=== PATIENT | female | born 2000 | race Caucasian/White ===

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

== ENCOUNTER 2021-06-23 12:34 | Outpatient (REF) | payer MEDICAID, SELFPAY ==
[2021-06-24 15:04] LABS: HSV 1 DNA Result Negative (Negative); HSV 2 DNA Result Negative (Negative)
== END 2021-06-23 12:35 | disposition home or self-care (01) ==
LOC: LBN 12:34
PROVIDERS: Visit Provider Family Medicine
DX: B00.1 Herpesviral vesicular dermatitis (principal)
CPT/HCPCS: 87529

== ENCOUNTER 2022-06-09 15:39 | Outpatient (REF) | payer MEDICAID, SELFPAY ==
--- NOTE | 2022-06-09 13:00 | PAPFT_PTH ---
PATIENT: Sherrill Burns LOC: [facility] U#:[id number] AGE/SX: 22/F ROOM: RE06/09/[address]: Destiny Copeland NP : 2000 BED: DIS: 06/09/2022 SPEC #: [id number] RECD: 06/09/22 18:00 STATUS: [facility]OPEZ REQ #: [id number] KAREEM: 06/09/22 13:[address]: Destiny Copeland NP DEPT: [facility] Cytology RECD BY: Shoshana Hill ENTERED: 06/10/22 10:32 SP TYPE: PAPFT OTHR DR: Ron Lo DNP Tissues: 1 - CX/ENDOCX FOR PAP SMEARS Procedures: PAP THIN PREP/UVM Screening Comments: [id number]
== END 2022-06-09 15:40 | disposition home or self-care (01) ==
LOC: LBN 15:39
PROVIDERS: PCP Nurse Practitioner Family; Visit Provider Nurse Practitioner Women's Health
DX: Z12.4 Encounter for screening for malignant neoplasm of cervix (principal)
CPT/HCPCS: 88142

== ENCOUNTER 2022-10-16 09:03 | Emergency (ER) | payer MEDICAID, SELFPAY ==
[2022-10-16 09:12] VITALS: BP 109/74; PULSE 90; RESP 16; TEMP 36.6; O2SAT 98
--- NOTE | 2022-10-16 10:00 | DI.RAD_ITS ---
Exam(s) XR ANKLE RT COMPLETE EXAM: XR ANKLE RT COMPLETE CLINICAL HISTORY: fall lateral ankle pain. TECHNIQUE: 2D digital imaging was performed. COMPARISON: No exams were available for comparison FINDINGS: There is soft tissue swelling laterally. No fractures nor widening of the ankle mortise. Talar dome unremarkable. No degenerative changes. On the lateral view there is a suggestion of osseous tarsal coalition between the calcaneus and cuboi d bones. There is no osseous tarsal coalition evident between the talus and calcaneus. IMPRESSION: Lateral soft tissue swelling. No fractures. 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 DATA REPOSITORY: RADIATION DOSE DELIVERED:
--- NOTE | 2022-10-16 10:19 | DI.VRAD_ITS ---
PROCEDURE INFORMATION: Exam: XR Right Ankle Exam date and time: 10/16/2022 10:05 AM Age: 22 years old Clinical indication: Pain; Ankle; Right TECHNIQUE: Imaging protocol: Radiologic exam of the right ankle. Views: 3 or more views. COMPARISON: No relevant prior studies available. FINDINGS: Bones/joints: There is no evidence of acute fracture.There is no evidence of malalignment or dislocation. Soft tissues: Bimalleolar soft tissue swelling IMPRESSION: There is no evidence of acute fracture.There is no evidence of malalignment or dislocation. Dictated and Authenticated by: Magdalena Sinclair MD. Ordering:THA Gaspar MD
--- NOTE | 2022-10-16 10:26 | W.ED.GENAD ---
Discharge Plan Disposition Patient Disposition: Home Discharge Details Clinical Impression: Right ankle sprain Primary Care Provider: Ron Manjarrez ED Provider: Hubert Canada Home Meds and New Rx's Prescriptions: No Action No Known Home Meds Discharge Instructions Instructions: Ankle Sprain (ED), R.I.C.E. Treatment (ED) Additional Instructions: You may continue to use [id number] pain medication as needed for discomfort. Please also use crutches for the next 2 to 3 days and then advance activity including weightbearing as tolerated. If not improving in the next 2 to 4 weeks please follow-up with your primary care provider for reassessment or return to the emergency department for any new or significant worsening of your symptoms. Referrals: Ron Manjarrez INCIDENT RESPONSE CONSULTANT [Primary Care Provider] - Discharge Data Discharge Date/Time-TO BE ENTERED AT DEPARTURE: 10/16/22 10:50 Medical Decision Making Patient presenting to the emergency department for chief complaint of right ankle injury. Patient states that yesterday she stepped off a curb and rolled her ankle. Patient denies any other injury or trauma. Patient does report that she has injured her right ankle before and initially she was able to walk on it but now it is becoming more painful. Patient is using crutches and toe-touch weightbearing only. Physical exam shows significant swelling to the lateral malleolus and tenderness both to the medial and lateral malleolus. Range of motion is limited by pain but sensation and movement along with cap refill is intact distal to injury no other abnormalities noted on exam we will perform radiological imaging. Patient denies any need for pain medication pending results. Review of radiological imaging and radiologist interpretation shows no acute fracture or dislocation. We will place patient in a stirrup ankle brace and encourage crutch use over the next couple days with weightbearing as tolerated. Patient to follow-up with primary care provider if not improving in the next 2 to 4 weeks. After discussion of diagnosis and plan of care patient has no further needs, questions, or concerns and states clear understanding to return to the emergency department for any worsening symptoms. This documentation was generated using [employer] system, please disregard any oddities of phrase or misspellings. Imaging Data Radiologic Study: Attestation: I personally reviewed and interpreted this imaging study as follows: Imaging: X-Ray Radiologist's impression: Exam(s) PROCEDURE INFORMATION: Exam: XR Right Ankle Exam date and time: 10/16/2022 10:05 AM Age: 22 years old Clinical indication: Pain; Ankle; Right TECHNIQUE: Imaging protocol: Radiologic exam of the right ankle. Views: 3 or more views. COMPARISON: No relevant prior studies available. FINDINGS: Bones/joints: There is no evidence of acute fracture.There is no evidence of malalignment or dislocation. Soft tissues: Bimalleolar soft tissue swelling IMPRESSION: There is no evidence of acute fracture.There is no evidence of malalignment or dislocation. HPI General Mode of arrival: ambulatory. Date/Time Provider Initiated Documentation: 10/16/22 09:28. Limitations to Documentation: no limitations. Information obtained by: patient and RN notes reviewed. History of Present Illness 22 year old F presents to the emergency department with the chief complaint of Right ankle injury, described as moderate, Quality is described as aching, and is localized to the right and lower extremity. Patient reports no radiation. Patient started experiencing this day(s) (1) and it has been constant. Immobilization improves symptom(s), Movement worsens symptoms . Patient notes no other symptoms.. Patient did receive the following treatments prior to arrival, none Related Data Home Medications Medication Instructions Recorded Confirmed Unknown [No Known Home Meds] 06/09/22 06/09/22 Allergies Allergy/AdvReac Type Severity Reaction Status Date / Time ibuprofen Allergy Swelling/Ed Verified 06/09/22 12:37 [From DayQuil Sinus talia Pressure/Pain] pseudoephedrine Allergy Swelling/Ed Verified 06/09/22 12:37 [From DayQuil Sinus talia Pressure/Pain] General Stated Complaint: Orthopedic GLADIS: 4 Review of Systems Narrative: 6 systems reviewed and unremarkable except what is marked below. Musculoskeletal Musculoskeletal: Reports as per HPI, Reports arthralgias, Reports joint swelling, Reports limited range of motion, Denies numbness and Denies tingling Integumentary/Breasts Skin/Breast: Reports unusual bruising and Denies wounds Neurologic Neurologic: Denies numbness and Denies tingling PFSH All Active Problems (Updated 10/16/22 @ 10:32 by Hubert Canada NP) Right ankle sprain (Acute) Cold sore (Acute) Concentration deficit (Acute) 09/29/20 - Scores low for hyperactivity, moderate for inattention/focus issues. Increased body mass index (BMI) (Acute) Anxiety and depression (Chronic) Poor dentition (Acute) Referred to [place] Prominence of eyes (Acute 02/02/17) R eye is more prominent than L eye. No lid lag, no abnormal occular movement. Medical History Abscess of forearm MRSA Smoker in home mom, aunt Viral warts multiple including genital area Family History Mother ITP (idiopathic thrombocytopenic purpura) Cervical cancer Depression Maternal Grandmother Mental disorder bipolar Cervical cancer Sister No problems noted. Sister No problems noted. Sister Alcohol abuse Brother Alcohol abuse Father Alcohol abuse Brother No problems noted. Brother ADHD Bipolar 1 disorder Maternal Grandfather No problems noted. Paternal Grandfather Heart disease Paternal Grandmother No problems noted. 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 Pets and animals: Yes Pets and animals: cat(s) Sexually active: Yes Do you think of yourself as: straight/heterosexual Current gender identity: female What is your relationship status?: living with partner How often do you talk on the phone with friends or family?: three or more times per week How often do you get together with friends or relatives?: twice per week How often do you attend episcopalian or samaritan services?: decline to answer Do you belong to any clubs or organized social groups?: no Panel score (0-1 are the most socially isolated patients): 2 What type of physical activity do you participate in: none Frequency: does not exercise Vera/Sikhism: None Special vera needs: No Seatbelt use: always Helmet use: Yes Helmet use: sometimes Drive intox or ride w/intox regional driver: No Working smoke detector in home: Yes Fire extinguisher in home: Yes Carbon monox detector in home: Yes Firearms in home: No Do you feel safe at home: Yes Do you feel safe in your relationship?: Yes Female Reproductive History Menstrual control method: progestin IUCD History History 0 Para Hx # Term Pregnancies Multiple births Hx # Pregnancies Ectopic pregnancies AB induced Hx Number of Living Children AB spontaneous Exam Const General: cooperative, no acute distress and not ill appearing Orientation: alert, awake and oriented x3 HENMT Mouth: moist mucous membranes Resp Effort & Inspection: normal respiratory effort, able to speak in complete sentences and no respiratory distress Cardio Rate: regular rate Rhythm: regular rhythm Skin General skin exam: no rashes or lesions noted Neuro General: patient alert, patient awake, patient oriented x3, moves all extremities and no focal motor deficits Sensory Exam: no sensory deficits noted Extrem General: normal exam except as noted Right lower extremity: ankle Details: tenderness Location: of the lateral malleolus and of the medial malleolus, swelling Details: laterally, abnormal ROM Details: pain with active ROM and pain with passive ROM and ecchymosis lateral Details: single; no abrasions and no crepitus Course Vital Signs Vital signs: Vital Signs Temperature 36.6 C 10/16/22 09:12 Pulse 90 10/16/22 09:12 Respiratory Rate 16 10/16/22 09:12 Blood Pressure 109/74 10/16/22 09:12 Pulse Oximetry 98 10/16/22 09:12 Temperature 36.6 C 10/16/22 09:12 Temperature Source Oral 10/16/22 09:12 Pulse 90 10/16/22 09:12 Respiratory Rate 16 10/16/22 09:12 Respiratory Effort Normal 10/16/22 09:32 Blood Pressure 109/74 10/16/22 09:12 Blood Pressure Position Sitting 10/16/22 09:12 Pulse Oximetry 98 10/16/22 09:12 Oxygen Delivery Method Room Air 10/16/22 09:12 Oxygen Flow Rate 0 10/16/22 09:12 Lab/Test Results Lab/Test Results: POC- Test(urine) Negative PAWSS Have you Been Recently Intoxicated or Drunk Within the Last 30 days?: No Have you Ever Experienced Previous Episodes of Alcohol Withdrawal?: No Have you ever Experienced Withdrawal Seizures?: No Have you ever Experienced Delirium Tremens(DT)s?: No Have you ever undergone Alcohol Rehabilitation Treatment (i.e, inpt ot outpatient treatment programs)?: No Have you ever Experienced Blackouts?: No Have you ever Combined Alcohol with other Downers within the last 90 days?: No Have you ever Combined Alcohol with any other Substance of Abuse during the last 90 days?: No Result: 0
== END 2022-10-16 10:50 | disposition home or self-care (01) ==
PROVIDERS: Emergency Provider Nurse Practitioner Family; PCP Nurse Practitioner Family
DX: S93.401A Sprain of unspecified ligament of right ankle, initial encounter (principal); X50.1XXA Overexertion from prolonged static or awkward postures, initial encounter; Y93.01 Activity, walking, marching and hiking; Y92.480 Sidewalk as the place of occurrence of the external cause; Y99.9 Unspecified external cause status
CPT/HCPCS: 81025; 99283; 73610

== ENCOUNTER 2023-02-26 15:53 | Outpatient (REF) | payer MEDICAID, SELFPAY ==
[2023-02-26 16:01] LABS: HCT 41.7 % (36.0-46.0); HGB 13.9 g/dL (11.2-15.7); MCH 29.6 pg (27.0-33.0); MCHC 33.3 % (32.0-36.0); MCV 89 fL (80-95); MPV 11.5 fL (8.0-11.0); Platelet Count 126 10^3/uL (130-400); RDW 12.8 % (11.7-14.6); WBC 7.21 10^3/uL (4.4-10.8)
[2023-02-26 16:21] LABS: Anion Gap 9.7 mmol/L (3-11); BUN 10 mg/dL (7-18); CO2 26.3 mmol/L (21.0-32.0); CREATININE 0.9 mg/dL (0.55-1.02); Calcium 9.5 mg/dL (8.5-10.1); Chloride 104 mmol/L (98-107); Estimated GFR 91.55 (mL/min/1.73m2); Glucose 77 mg/dL (74-106); Potassium 3.8 mmol/L (3.5-5.1); Sodium 140 mmol/L (136-145)
== END 2023-02-26 15:54 | disposition home or self-care (01) ==
LOC: LBN 15:53
PROVIDERS: PCP Nurse Practitioner Family; Visit Provider Nurse Practitioner Family
DX: F41.8 Other specified anxiety disorders (principal); F32.89 Other specified depressive episodes; F43.20 Adjustment disorder, unspecified; Z79.899 Other long term (current) drug therapy
CPT/HCPCS: 80048; 85027; 84443

== ENCOUNTER 2023-05-01 19:53 | Emergency (ER) | payer MEDICAID, SELFPAY ==
[2023-05-01 19:58] VITALS: BP 126/78; PULSE 89; RESP 16; TEMP 36.8; O2SAT 97
--- NOTE | 2023-05-01 20:00 | DI.RAD_ITS ---
Exam(s) XR ANKLE RT COMPLETE EXAM: XR ANKLE RT COMPLETE CLINICAL HISTORY: lateral ankle injury. TECHNIQUE: 2D digital imaging was performed. Three views. COMPARISON: CR,XR XR ANKLE RT COMPLETE from 10/16/2022 FINDINGS: BONES: Nondisplaced oblique fracture through the lateral malleolus, extending to the ankle mortise. No bony destructive lesion is seen. JOINTS: The ankle mortise is normally aligned. Tibiotalar joint space is maintained. SOFT TISSUE: Soft tissue swelling. IMPRESSION: Nondisplaced fracture of the distal fibula. Findings called to Beth Stubbs of the emergency department. DATA REPOSITORY: RADIATION DOSE DELIVERED:
--- NOTE | 2023-05-01 21:01 | DI.VRAD_ITS ---
PROCEDURE INFORMATION: Exam: XR Right Ankle Exam date and time: 05/01/2023 8:19 PM Age: 23 years old Clinical indication: Pain; Right; Patient HX: Lateral ankle injury TECHNIQUE: Imaging protocol: Radiologic exam of the right ankle. Views: 3 or more views. COMPARISON: CR XR ANKLE RT COMPLETE 10/16/2022 10:05 AM FINDINGS: Bones/joints: Three views of the right ankle reveal no acute fracture or dislocation. The ankle mortise appears intact. Soft tissues: There is prominent soft tissue swelling over the lateral malleolus. IMPRESSION: No acute fracture or dislocation seen at the right ankle. Prominent soft tissue swelling overlying the lateral malleolus. Dictated and Authenticated by: Marc Pardo MD. Ordering:THA Gaspar MD
--- NOTE | 2023-05-01 21:10 | ED.GENADUL_ITS ---
HPI General Mode of arrival: wheelchair . Date/Time Provider Initiated Documentation: 05/01/23 20:00 . Limitations to Documentation: no limitations . Information obtained by: patient and RN notes reviewed . History of Present Illness 23 year old F presents to the emergency department with the chief complaint of Right ankle injury, described as moderate, severe and similar to prior episodes, and is localized to the right and lower extremity. Patient started experiencing this hour(s) (4) and it has been constant. Immobilization improves symptom(s), Movement worsens symptoms . Patient notes no other symptoms.. Patient did receive the following treatments prior to arrival, none Related Data Home Medications Medication Instructions Recorded Confirmed escitalopram oxalate 20 mg tablet 20 mg PO DAILY #90 tabs 02/26/23 04/09/23 Previous Rx's Medication Instructions Recorded escitalopram oxalate 20 mg tablet 20 mg PO DAILY #90 tabs 02/26/23 Allergies Allergy/AdvReac Type Severity Reaction Status Date / Time ibuprofen Allergy Swelling/Ed Verified 03/12/23 11:54 [From DayQuil Sinus talia Pressure/Pain] pseudoephedrine Allergy Swelling/Ed Verified 03/12/23 11:54 [From DayQuil Sinus talia Pressure/Pain] General Stated Complaint: Orthopedic GLADIS: 4 Review of Systems Cardiovascular Cardiovascular: Denies syncope Musculoskeletal Musculoskeletal: Reports as per HPI, Reports arthralgias, Reports joint swelling and Reports limited range of motion Integumentary/Breasts Skin/Breast: Denies unusual bruising and Denies wounds Neurologic Neurologic: Denies syncope and Denies paresthesias Exam Const General: cooperative, no acute distress and not ill appearing Orientation: alert, awake and oriented x3 HENNM Mouth: moist mucous membranes Resp Effort & Inspection: normal respiratory effort, able to speak in complete sentences and no respiratory distress Cardio Rate: regular rate Rhythm: regular rhythm Pulses: normal peripheral pulses Skin General skin exam: no rashes or lesions noted Neuro General: patient alert, patient awake, patient oriented x3, moves all extremities and no focal motor deficits Sensory Exam: no sensory deficits noted Extrem General: normal exam except as noted Right lower extremity: ankle Details: tenderness Location: of the lateral malleolus, swelling Details: laterally and abnormal ROM Details: pain with active ROM Details: with plantar flexion and with dorsiflexion, pain with passive ROM Details: with plantar flexion and with dorsiflexion and with range as follows (No inversion or eversion due to significant pain) Course Vital Signs Vital signs: Vital Signs Temperature 36.8 C 05/01/23 19:58 Pulse 89 05/01/23 19:58 Respiratory Rate 16 05/01/23 19:58 Blood Pressure 126/78 05/01/23 19:58 Pulse Oximetry 97 05/01/23 19:58 Temperature 36.8 C 05/01/23 19:58 Pulse 89 05/01/23 19:58 Respiratory Rate 16 05/01/23 19:58 Respiratory Effort Normal 05/01/23 20:08 Blood Pressure 126/78 05/01/23 19:58 Pulse Oximetry 97 05/01/23 19:58 Oxygen Delivery Method Room Air 05/01/23 19:58 Oxygen Flow Rate 0 05/01/23 19:58 Medical Decision Making Patient presenting to the emergency department for chief complaint of right ankle injury. Patient states approximately 4 hours ago she was on a swing and got her foot caught behind her and she heard a large pop or snap to the lateral aspect of her ankle. After that she was unable to bear any weight or put press ure on her ankle or foot. Patient denies any other injury or trauma. She does state history of multiple ankle sprains on the right within the last 6 months. No other contributing past medical history. Physical exam shows significant lateral ankle swelling and tenderness to palpation and inability to perform any inversion or eversion range of motion secondary to pain. There is still flexion and extension of the ankle but somewhat reduced secondary to injury. Pulse sensation and movement is intact distal to the injury. Will perform radiological imaging for evaluation of sprain versus fracture Review of radiological imaging and radiologist interpretation shows a subtle lunacy that is seen on the lateral view. Radiologist interpreted film as negative but I question if there is possibly a subtle nondisplaced fracture given patient not being weightbearing and tender to that area. Will place patient in walking boot and crutches which she already has at home and on the orthopedic list for follow-up and reassessment for ankle injury due to question of fracture versus sprain. After discussion of diagnosis and plan of care patient has no further needs, questions, or concerns and states clear understanding to return to the emergency department for any worsening symptoms. This documentation was generated using [employer]ation system, please disregard any oddities of phrase or misspellings. Imaging Data Radiologic Study: My impression: Question of subtle fracture due to lunacy seen on lateral view Radiologist's impression: Exam(s) PROCEDURE INFORMATION: Exam: XR Right Ankle Exam date and time: 05/01/2023 8:19 PM Age: 23 years old Clinical indication: Pain; Right; Patient HX: Lateral ankle injury TECHNIQUE: Imaging protocol: Radiologic exam of the right ankle. Views: 3 or more views. COMPARISON: CR XR ANKLE RT COMPLETE 10/16/2022 10:05 AM FINDINGS: Bones/joints: Three views of the right ankle reveal no acute fracture or dislocation. The ankle mortise appears intact. Soft tissues: There is prominent soft tissue swelling over the lateral malleolus. IMPRESSION: No acute fracture or dislocation seen at the right ankle. Prominent soft tissue swelling overlying the lateral malleolus. Dictated and Authenticated by: Marc Pardo MD. Quality:SDOH Health Related Social Needs: Health related social needs inadequate housing, food i nsecurity, material hardship Health related social needs details r/t impulsivity, PFSH All Active Problems Injury of right ankle (Acute) Cold sore (Acute) Concentration deficit (Acute) 09/29/20 - Scores low for hyperactivity, moderate for inattention/focus issues. Increased body mass index (BMI) (Acute) Anxiety and depression (Chronic) Poor dentition (Acute) Referred to [place] Prominence of eyes (Acute 02/02/17) R eye is more prominent than L eye. No lid lag, no abnormal occular movement. Medical History Viral warts multiple including genital area Smoker in home mom, aunt Abscess of forearm MRSA Family History Mother ITP (idiopathic thrombocytopenic purpura) Cervical cancer Depression Maternal Grandmother Mental disorder bipolar Cervical cancer Sister No problems noted. Sister No problems noted. Sister Alcohol abuse Brother Alcohol abuse Father Alcohol abuse Brother No problems noted. Brother ADHD Bipolar 1 disorder Maternal Grandfather No problems noted. Paternal Grandfather Heart disease Paternal Grandmother No problems noted. 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 Pets and animals: Yes Pets and animals: cat(s) Sexually active: Yes Do you think of yourself as: straight/heterosexual Current gender identity: female What is your relationship status?: living with partner How often do you talk on the phone with friends or family?: three or more times per week How often do you get together with friends or relatives?: twice per week How often do you attend orthodoxy or synagogue services?: decline to answer Do you belong to any clubs or organized social groups?: no Panel score (0-1 are the most socially isolated patients): 2 What type of physical activity do you participate in: none Frequency: does not exercise Vera/Anabaptism: None Special vera needs: No Seatbelt use: always Helmet use: Yes Helmet use: sometimes Drive intox or ride w/intox local truck driver: No Working smoke detector in home: Yes Fire extinguisher in home: Yes Carbon monox detector in home: Yes Firearms in home: No Do you feel safe at home: Yes Do you feel safe in your relationship?: Yes Female Reproductive History Menstrual Date of last menstrual period: 04/03/23 control method: none and progestin IUCD History History 0 Para Hx # Term Pregnancies Multiple births Hx # Pregnancies Ectopic pregnancies AB induced Hx Number of Living Children AB spontaneous Discharge Plan Disposition Patient Disposition: Home Discharge Details Clinical Impression: Injury of right ankle Primary Care Provider: Ron Manjarrez ED Provider: Hubert Canada Home Meds and New Rx's Prescriptions: Continued escitalopram oxalate 20 mg tablet 20 mg PO DAILY Qty: 90 0RF Discharge Instructions Instructions: R.I.C.E. Treatment (ED), Swollen Ankle Joint (ED) Additional Instructions: There is a question of very subtle fracture of your distal fibula there is ankle sprain. You have been placed in a walking boot but it is recommended that you use crutches for the next 3 days at minimum and then you may slowly perform weightbearing activities as tolerated. Continue to use [id number] acetaminophen or ibuprofen as needed for discomfort Please call the orthopedic office tomorrow for arrangement of your follow-up appointment for reassessment and repeat imaging as needed. Referrals: [facility] [Provider Group] (Please call the office tomorrow afternoon for arrangement of follow-up appointment)
== END 2023-05-01 21:49 | disposition home or self-care (01) ==
PROVIDERS: Emergency Provider Nurse Practitioner Family; PCP Nurse Practitioner Family
DX: S82.64XA Nondisplaced fracture of lateral malleolus of right fibula, initial encounter for closed fracture (principal); X50.1XXA Overexertion from prolonged static or awkward postures, initial encounter
CPT/HCPCS: 99283; 73610

== ENCOUNTER 2023-11-16 17:03 | Outpatient (CLI) | payer SELFPAY ==
[2023-11-16 17:42] LABS: HCG Quant, Pregnancy 331 mIU/mL (1-3)
== END 2023-11-16 17:04 | disposition home or self-care (01) ==
LOC: LBO 17:03
PROVIDERS: PCP Nurse Practitioner Family; Visit Provider Advanced Practice Midwife
DX: O20.0 Threatened abortion (principal); N92.6 Irregular menstruation, unspecified; Z32.01 Encounter for pregnancy test, result positive; F41.9 Anxiety disorder, unspecified; F32.9 Major depressive disorder, single episode, unspecified
CPT/HCPCS: 36415; 86850; 86900; 86901; 84702

== ENCOUNTER 2023-11-19 13:06 | Outpatient (CLI) | payer SELFPAY ==
[2023-11-19 13:55] LABS: HCG Quant, Pregnancy 311 mIU/mL (1-3)
--- NOTE | 2023-11-22 08:01 | W.PM.PROGNOT ---
Date of Service Date of service: 11/19/23 Time of Service: 08:01 Assessment and Plan Assessment and plan (1) Miscarriage, threatened, early : Status: Acute Assessment and plan: QHCG was drawn and she returned home. I will call her with results. Subjective Subjective Interval history since last seen: Sherrill reported spotting this week and she experienced bleeding yesterday. QHCG 331 two days ago and she is here for repeat QHCG. Blood type is RH pos. She denies pain. Time Spent with Patient Time Spent with Patient: <25 minutes Time was spent: referring, communicating with other health emergency care tech, indepentently interpreting results and counseling the patient
== END 2023-11-19 13:07 | disposition home or self-care (01) ==
LOC: BCD 13:08
PROVIDERS: PCP Nurse Practitioner Family; Visit Provider Advanced Practice Midwife
DX: O20.0 Threatened abortion (principal)
CPT/HCPCS: 84702; 84703

== ENCOUNTER 2023-12-15 11:08 | Day surgery (SDC) | payer SELFPAY ==
[2023-12-15] VITALS (25 sets, daily range): BP systolic 76–120; BP diastolic 44–82; PULSE 76–96; RESP 7–21; TEMP 36.1–36.8; O2SAT 97–100; BMI 39.6
--- NOTE | 2023-12-15 11:26 | DI.US_ITS ---
Exam(s) US OB 1ST TRIMESTER EXAM: US OB 1ST TRIMESTER CLINICAL HISTORY: recent pos preg, vaginal bleeding LLQ pain. TECHNIQUE: Transabdominal and transvaginal pelvic ultrasound was performed using standard protocol. COMPARISON: No exams were available for comparison FINDINGS: UTERUS: Position: Anteverted. Size: 6.3 long by 2.8 AP by 3.4 transverse cm Endometrium: 0.3 cm. Normal for patient's menstrual status. There is no evidence of an intrauterine g estation. Myometrium: Unremarkable. Cervix: There is a cervical nabothian cyst present. OVARIES: Right: 3.2 x 2.3 x 2.2 cm Cyst or mass: No suspicious cystic or solid masses. Left: 2.3 x 1.5 x 2.7 cm Cyst or mass: No suspicious cystic or solid masses. DOPPLER: Color: Symmetric and uniform flow to both ovaries. CUL-DE-SAC: Free fluid: There is a large amount of free fluid in the pelvis. Other: There is a 5.5 x 2.5 x 4.3 cm complex vascular mass interposed between the uterus and the left ovary. IMPRESSION: 1. Normal-appearing uterus with endometrial stripe within normal limits. No evidence of an intrauter ine gestational sac. 2. 5.5 x 2.5 x 4.3 cm complex vascular mass interposed between the uterus in the left ovary. Given t he patient's clinical history, findings are most concerning for an ectopic . A tubal locati on should be considered. 3. Large amount of free fluid in the pelvis. 4. Findings were discussed with Dr. Buckley at 12:40 p.m. on 12/15/2023. DATA REPOSITORY:
--- NOTE | 2023-12-15 11:36 | ED.GENADUL_ITS ---
Discharge Plan Discharge Details Chief Complaint: Abd Prob Primary Care Provider: Ron Manjarrez ED Provider: Russel Buckley Home Meds and New Rx's Prescriptions: No Action vit,[id number] 29-1 mg tablet 1 tab PO DAILY Qty: 90 4RF escitalopram oxalate 20 mg tablet 20 mg PO DAILY Qty: 90 4RF HPI General Date/Time Provider Initiated Documentation: 12/15/23 11:14 . HPI Narrative: 23-year-old female recent positive test and of October with concern for threatened miscarriage and possible full miscarriage earlier this month however no confirmatory blood test or ultrasound was performed. Patient presenting with abdominal distention left lower quadrant discomfort. Intermittent vaginal spotting for the last couple of weeks. Related Data Home Medications ?Medication ?Instructions ?Recorded ?Confirmed escitalopram oxalate 20 mg tablet 20 mg PO DAILY #90 tabs 10/03/23 12/15/23 vits,calcium no.78-iron 1 tab PO DAILY #90 tabs 11/15/23 12/15/23 fumarate-folic acid 29 mg-1 mg tablet Previous Rx's ?Medication ?Instructions ?Recorded escitalopram oxalate 20 mg tablet 20 mg PO DAILY #90 tabs 10/03/23 vits,calcium no.78-iron 1 tab PO DAILY #90 tabs 11/15/23 fumarate-folic acid 29 mg-1 mg tablet Allergies Allergy/AdvReac Type Severity Reaction Status Date / Time ibuprofen (From DayQuil Allergy Swelling/Ed Verified 12/15/23 11:17 Sinus Pressure/Pain) talia pseudoephedrine (From Allergy Swelling/Ed Verified 12/15/23 11:17 DayQuil Sinus Pressure/Pain) talia General Stated Complaint: Abd Prob GLADIS: 3 Exam Narrative Exam Narrative: Alert oriented interactive Moist mucous membranes tongue secretions Speaking full sentences lungs clear bilaterally Normal heart sounds no murmurs rubs or gallops Abdomen mildly distended with subjective tenderness in the left lower quadrant without guarding or rebounding Slight pallor to skin No peripheral edema Alert oriented interactive moving extremity without deficit Course Vital Signs Vital signs: Vital Signs Temperature 36.8 C 12/15/23 11:10 Pulse 96 H 12/15/23 11:10 Respiratory Rate 18 12/15/23 11:10 Blood Pressure 120/82 12/15/23 11:10 Pulse Oximetry 98 12/15/23 11:10 Temperature 36.8 C 12/15/23 11:10 Temperature Source Tympanic 12/15/23 11:10 Pulse 96 H 12/15/23 11:10 Respiratory Rate 18 12/15/23 11:10 Blood Pressure 120/82 12/15/23 11:10 Blood Pressure Position Sitting 12/15/23 11:10 Pulse Oximetry 98 12/15/23 11:10 Oxygen Delivery Method Room Air 12/15/23 11:10 Oxygen Flow Rate 0 12/15/23 11:10 Medical Decision Making 23-year-old female recent positive test and of October with concern for threatened miscarriage and possible full miscarriage earlier this month however no confirmatory blood test or ultrasound was performed. Patient presenting with abdominal distention left lower quadrant discomfort. Intermittent vaginal spotting for the last couple of weeks. Slight pallor, mildly distended abdomen with tenderness in left lower quadrant no guarding no rebounding, borderline tachycardia, consider ectopic versus incomplete lower suspicion for endometritis or pelvic inflammatory disease must also consider colitis enteritis diverticulitis lower suspicion for appendicitis, lower suspicion for nephrolithiasis or pyelonephritis, will obtain blood work type and screen coagulation panel, hCG, pelvic ultrasound close reassessment 12: 49 evidence of ectopic left adnexa seen on ultrasound; labs/ test still pending; Dr. Lopez of [employer] at bedside consenting patient for OR; patient did have vasovagal episode during IV access, improved with Trendelenburg rest and fluids Quality:SDOH Health Related Social Needs: Health related social needs inadequate housing, food i nsecurity, material hardship Health related social needs details r/t impulsivity, PFSH All Active Problems (Updated 11/16/23 @ 16:05 by Jessica Li CNM) Miscarriage, threatened, early (Acute) Obesity (BMI 30.0-34.9) (Acute) (Acute) Missed menses (Acute) Nondisplaced fracture of distal end of fibula (Acute) Cold sore (Acute) Concentration deficit (Acute) 09/29/20 - Scores low for hyperactivity, moderate for inattention/focus issues. Increased body mass index (BMI) (Acute) Anxiety and depression (Chronic) Poor dentition (Acute) Referred to [facility] Prominence of eyes (Acute 02/02/17) R eye is more prominent than L eye. No lid lag, no abnormal occular movement. Medical History Viral warts multiple including genital area Smoker in home mom, aunt Abscess of forearm MRSA Family History Mother ITP (idiopathic thrombocytopenic purpura) Cervical cancer Depression Maternal Grandmother Mental disorder bipolar Cervical cancer Sister No problems noted. Sister No problems noted. Sister Alcohol abuse Brother Alcohol abuse Father Alcohol abuse Brother No problems noted. Brother ADHD Bipolar 1 disorder Maternal Grandfather No problems noted. Paternal Grandfather Heart disease Paternal Grandmother No problems noted. 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 Pets and animals: Yes Pets and animals: cat(s) Sexually active: Yes Do you think of yourself as: straight/heterosexual Current gender identity: female What is your relationship status?: living with partner How often do you talk on the phone with friends or family?: three or more times per week How often do you get together with friends or relatives?: twice per week How often do you attend restorationism or adventism services?: decline to answer Do you belong to any clubs or organized social groups?: no Panel score (0-1 are the most socially isolated patients): 2 What type of physical activity do you participate in: none Frequency: does not exercise Vera/Gnosticist: None Special vera needs: No Seatbelt use: always Helmet use: Yes Helmet use: sometimes Drive intox or ride w/intox lyft driver: No Working smoke detector in home: Yes Fire extinguisher in home: Yes Carbon monox detector in home: Yes Firearms in home: No Do you feel safe at home: Yes Do you feel safe in your relationship?: Yes Female Reproductive History Menstrual control method: none History History 0 Para Hx # Term Pregnancies Multiple births Hx # Pregnancies Ectopic pregnancies AB induced Hx Number of Living Children AB spontaneous
[2023-12-15 12:51] LABS: Abs Immature Grans 0.06 10^3/uL (0.0-0.06); Absolute Eosinophil Count 0.06 10^3/uL (0.0-0.7); Absolute Lymphocyte Count 1.14 10^3/uL (1.2-3.4); Basophils % 0.2 %; Eosinophils % 0.5 %; HCT 39.2 % (36.0-46.0); HGB 13.2 g/dL (11.2-15.7); Immature Grans % 0.5 %; MCH 30.6 pg (27.0-33.0); MCHC 33.7 % (32.0-36.0); MCV 91 fL (80-95); MPV 10.6 fL (8.0-11.0); Neutrophils % 85.8 %; Platelet Count 132 10^3/uL (130-400); RBC 4.31 10^6/uL (3.93-5.22); RDW 13.1 % (11.7-14.6); RDW-SD 43.3 fL; WBC 12.65 10^3/uL (4.4-10.8)
[2023-12-15 12:52] LABS: Bilirubin Negative (Negative); Blood Moderate (Negative); Clarity Sl Cloudy (Clear); Glucose Negative (Negative); Ketones Trace mg/dL (Negative); Leukocyte Esterase Negative (Negative); Nitrite Negative (Negative); Specific Gravity >= 1.030 (1.005-1.025); Urobilinogen 0.2 mg/dL (Up to 0.2)
[2023-12-15] MEDS: Normal Saline 1,000 ML 1000 ML IV (13:01)
[2023-12-15 13:02] LABS: INR 1.1 (0.9-1.1); PTT Activated 25.6 sec (23.6-32.8); Prothrombin Time 10.7 sec (9.1-11.1)
[2023-12-15 13:03] LABS: Absolute Basophil Count 0.03 10^3/uL (0.0-0.2); Absolute Monocyte Count 0.51 10^3/uL (0.1-0.8); Absolute Neutrophil Count 10.85 10^3/uL (1.2-6.7)
--- NOTE | 2023-12-15 13:06 | W.PM.HP.N ---
Date of service: 12/15/23 Time of Service: 13:06 Assessment and Plan Assessment and plan (1) Ruptured ectopic : Status: Acute Assessment and plan: 23yo P0 with pelvic sono concerning for ruptured left ectopic . VS and labs currently stable. Reviewed my recommendation for proceeding to the OR and pt is agreeable to this plan. We reviewed the risks including infection, bleeding, pain and injury to nearby organs. All questions answered and consent signed. The OR was notified and anesthesia is aware. History of Present Illness History of Present Illness Chief Complaint: abdominal pain Narrative: Pt says she had sudden onset of pain around 8am today and it has continued with intermittent cramping and pain. She had some minor nausea. She had 1 episode of diarrhea. She has some spotting currently. LMP 10/11/23. She was seen 1mo ago at [facility] for confirmation of and was going to return for a dating sono in a few weeks but then last week she had heavier bleeding and thought she'd had a miscarriage. This was a planned . Review of Systems Genitourinary Genitourinary: Reports system reviewed and no additional complaints, except as documented PFSH All Active Problems (Updated 12/15/23 @ 12:52 by ALIA KERR) Ruptured ectopic (Acute) Miscarriage, threatened, early (Acute) Obesity (BMI 30.0-34.9) (Acute) (Acute) Missed menses (Acute) Nondisplaced fracture of distal end of fibula (Acute) Cold sore (Acute) Concentration deficit (Acute) 09/29/20 - Scores low for hyperactivity, moderate for inattention/focus issues. Increased body mass index (BMI) (Acute) Anxiety and depression (Chronic) Poor dentition (Acute) Referred to [facility] Prominence of eyes (Acute 02/02/17) R eye is more prominent than L eye. No lid lag, no abnormal occular movement. Medical History Viral warts multiple including genital area Smoker in home mom, aunt Abscess of forearm MRSA Family History Mother ITP (idiopathic thrombocytopenic purpura) Cervical cancer Depression Maternal Grandmother Mental disorder bipolar Cervical cancer Sister No problems noted. Sister No problems noted. Sister Alcohol abuse Brother Alcohol abuse Father Alcohol abuse Brother No problems noted. Brother ADHD Bipolar 1 disorder Maternal Grandfather No problems noted. Paternal Grandfather Heart disease Paternal Grandmother No problems noted. 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 [employer] Pets and animals: Yes Pets and animals: cat(s) Sexually active: Yes Do you think of yourself as: straight/heterosexual Current gender identity: female What is your relationship status?: living with partner How often do you talk on the phone with friends or family?: three or more times per week How often do you get together with friends or relatives?: twice per week How often do you attend jainism or sikhism services?: decline to answer Do you belong to any clubs or organized social groups?: no Panel score (0-1 are the most socially isolated patients): 2 What type of physical activity do you participate in: none Frequency: does not exercise Vera/Jew: None Special vera needs: No Seatbelt use: always Helmet use: Yes Helmet use: sometimes Drive intox or ride w/intox pile driver operator helper: No Working smoke detector in home: Yes Fire extinguisher in home: Yes Carbon monox detector in home: Yes Firearms in home: No Do you feel safe at home: Yes Do you feel safe in your relationship?: Yes Female Reproductive History Menstrual control method: none History History 0 Para Hx # Term Pregnancies Multiple births Hx # Pregnancies Ectopic pregnancies AB induced Hx Number of Living Children AB spontaneous Meds Allergies and Home Medications Allergies Allergy/AdvReac Type Severity Reaction Status Date / Time ibuprofen (From DayQuil Allergy Swelling/Ed Verified 12/15/23 11:17 Sinus Pressure/Pain) talia pseudoephedrine (From Allergy Swelling/Ed Verified 12/15/23 11:17 DayQuil Sinus Pressure/Pain) talia Home Medications ?Medication ?Instructions ?Recorded ?Confirmed ?Type escitalopram oxalate 20 mg tablet 20 mg PO DAILY #90 tabs 10/03/23 12/15/23 Rx vits,calcium no.78-iron 1 tab PO DAILY #90 tabs 11/15/23 12/15/23 Rx fumarate-folic acid 29 mg-1 mg tablet Exam Const General: cooperative, healthy appearing and no acute distress HENMA Head: normocephalic and atraumatic Ears: hearing grossly normal bilaterally Resp Effort & Inspection: normal respiratory effort and able to speak in complete sentences GI Other: Pt with tenderness to palpation across her lower abdomen. Neuro General: patient alert and patient awake Psych Appearance: grossly normal Mental Status: mental status grossly normal Speech and Movement: speech and movement normal Affect: normal affect Attitude: cooperative Thought Process: normal Thought Content: normal Results Labs 12/15/23 12:33 12/15/23 12:33 Labs: Laboratory Results - last 24 hr 12/15/23 12/15/23 12:20 12:33 WBC 12.65 H RBC 4.31 Hgb 13.2 Hct 39.2 MCV 91 MCH 30.6 MCHC 33.7 RDW 13.1 Plt Count 132 MPV 10.6 Immature Gran % 0.5 Neutrophils % 85.8 Lymphocytes % 9.0 Monocytes % 4.0 Eosinophils % 0.5 Basophils % 0.2 Nucleated RBC % 0.0 Absolute Neutrophils 10.85 H Absolute Lymphocytes 1.14 L Absolute Monocytes 0.51 Absolute Eosinophils 0.06 Absolute Basophils 0.03 PT 10.7 INR 1.1 APTT 25.6 Urine Color Yellow Urine Clarity Sl Cloudy Urine pH 7.0 Ur Specific [place] >= 1.030 H Urine Protein Trace Urine Ketones Trace H Urine Blood Moderate H Urine Nitrite Negative Urine Bilirubin Negative Urine Urobilinogen 0.2 Ur Leukocyte Esterase Negative Urine Glucose Negative Last Vital Signs Temp 98.3 F 12/15/23 11:10 Pulse 76 12/15/23 13:00 Resp 18 12/15/23 11:10 BP 102/62 12/15/23 13:00 Pulse Ox 100 12/15/23 13:00 Time Spent Time spent with Patient: 40-54 minutes Time was spent: preparing to see the patient(eg.review tests), obtaining and/or reviewing separately otained hiistory, referring, communicating with other health career transition specialist, indepentently interpreting results and counseling the patient
[2023-12-15 13:08] LABS: Epithelial Cells Moderate HPF (Negative)
[2023-12-15 13:09] LABS: Bacteria Moderate HPF (Negative)
[2023-12-15 13:10] LABS: ALT 19 U/L (14-59); AST 6 U/L (15-37); Albumin 4.4 g/dL (3.4-5.0); Alkaline Phosphatase 61 U/L (46-116); Anion Gap 8.9 mmol/L (3-11); BUN 9 mg/dL (7-18); Bilirubin, Total 0.43 mg/dL (0.2-1.0); CO2 27.1 mmol/L (21.0-32.0); CREATININE 0.8 mg/dL (0.55-1.02); Calcium 9.4 mg/dL (8.5-10.1); Chloride 103 mmol/L (98-107); Glucose 98 mg/dL (74-106); HCG Quant, Pregnancy 96 mIU/mL (1-3); Potassium 3.9 mmol/L (3.5-5.1); Sodium 139 mmol/L (136-145); Total Protein 7.6 g/dL (6.4-8.2)
[2023-12-15 13:10] LABS: Mucus Negative (Negative)
[2023-12-15 13:12] LABS: Crystals Few Amorphous HPF (Negative)
[2023-12-15 13:13] LABS: C & S Indicated? No
[2023-12-15] MEDS: ELECTROLYTE-R SOLUTION 1,000 ML 100 ML IV (13:29)
--- NOTE | 2023-12-15 13:30 | ANES.PREOP_ITS ---
General Info Date of Service Date Performed: 12/15/23 Height: 4 ft 10 in Weight: 86.183 kg Body Mass Index (BMI): 39.6 Surgical Procedure: Operation Date: 12/15/23 13:10 Proposed Procedure Side Surgeon p Diagnostic Laparoscopy Ynes eWeks MD Meds Allergies and Home Medications Allergies Allergy/AdvReac Type Severity Reaction Status Date / Time ibuprofen (From DayQuil Allergy Swelling/Ed Verified 12/15/23 11:17 Sinus Pressure/Pain) talia pseudoephedrine (From Allergy Swelling/Ed Verified 12/15/23 11:17 DayQuil Sinus Pressure/Pain) talia Home Medication ?Medication ?Instructions ?Recorded escitalopram oxalate 20 mg tablet 20 mg PO DAILY #90 tabs 10/03/23 vits,calcium no.78-iron 1 tab PO DAILY #90 tabs 11/15/23 fumarate-folic acid 29 mg-1 mg tablet Current Visit Medications: Current Medications Generic Name Dose Route Start Last Admin Trade Name Freq PRN Reason Stop Dose Admin Sodium Chloride 1,000 mls @ 1,000 mls/hr 12/15/23 12:58 12/15/23 13:01 Saline 1000ml Bag IV 12/15/23 13:57 1,000 mls/hr BOLUS ONE Administration PFSH Active Problems Active Problems: Problem Status Onset Code Ruptured ectopic Acute O00.90 Miscarriage, threatened, early Acute O20.0 Obesity (BMI 30.0-34.9) Acute E66.9 Acute Z34.90 Missed menses Acute N92.6 Nondisplaced fracture of distal end of fibula Acute S82.839A Cold sore Acute B00.1 Concentration deficit Acute R41.840 Increased body mass index (BMI) Acute R63.8 Anxiety and depression Chronic F41.9, F32.9 Poor dentition Acute K08.9 Prominence of eyes Acute 02/02/17 H57.8 Medical History Medical History Viral warts multiple including genital area Smoker in home mom, aunt Abscess of forearm MRSA Tobacco Smoking/Tobacco Use Status: Never Passive smoking exposure: Yes Second hand exposure: Yes Alcohol Alcohol Intake: current Alcohol intake frequency: a few times a month Alcohol type: other Substance Use Substance use: Daily Substance use type: marijuana Counseling provided: none Prental History History 2 0 Para Hx # Term Pregnancies Multiple births Hx # Pregnancies Ectopic pregnancies AB induced Hx Number of Living Children AB spontaneous Vital Signs and Lab Results Vital Signs Most Recent Vital Signs in EMR: Most Recent Vital Signs Temp Pulse Resp BP Pulse Ox 36.8 C 79 18 108/75 100 12/15/23 11:10 12/15/23 13:15 12/15/23 11:10 12/15/23 13:15 12/15/23 13:15 Lab Results 12/15/23 12:33 12/15/23 12:33 Blood Type / Crossmatch: 2 Antibody Screen NEGATIVE 12/15/23 Complete Blood Count: 2 White Blood Count 12.65 10^3/uL (4.4-10.8) H 12/15/23 12:33 Red Blood Count 4.31 10^6/uL (3.93-5.22) 12/15/23 12:33 Hemoglobin 13.2 g/dL (11.2-15.7) 12/15/23 12:33 Hematocrit 39.2 % (36.0-46.0) 12/15/23 12:33 Platelet Count 132 10^3/uL (130-400) 12/15/23 12:33 Complete Metabolic Panel: 2 Sodium 139 mmol/L (136-145) 12/15/23 12:33 Potassium 3.9 mmol/L (3.5-5.1) 12/15/23 12:33 Chloride 103 mmol/L (98-107) 12/15/23 12:33 Carbon Dioxide 27.1 mmol/L (21.0-32.0) 12/15/23 12:33 BUN 9 mg/dL (7-18) 12/15/23 12:33 Creatinine 0.8 mg/dL (0.55-1.02) 12/15/23 12:33 Est GFR (CKD-EPI 2020) 104.80 (mL/min/1.73m2) 12/15/23 12:33 Calcium 9.4 mg/dL (8.5-10.1) 12/15/23 12:33 Albumin 4.4 g/dL (3.4-5.0) 12/15/23 12:33 Glucose 98 mg/dL (74-106) 12/15/23 12:33 Liver Function Panel: 2 Alanine Aminotransferase (ALT/SGPT) 19 U/L (14-59) 12/15/23 12: 33 Aspartate Amino Transf (AST/SGOT) 6 U/L (15-37) L 12/15/23 12:3 3 Coagulation Panel: 2 INR International Normalized Ratio 1.1 (0.9-1.1) 12/15/23 12:3 3 Prothrombin Time 10.7 sec (9.1-11.1) 12/15/23 12:33 Activated Partial Thromboplast Time 25.6 sec (23.6-32.8) 12:33 Cardiac Panel: 2 No Data to Display Arterial Blood Gas: 2 No Data to Display Venous Blood Gas: 2 No Data to Display Pancreas Panel: 2 No Data to Display Thyroid Panel: 2 No Data to Display Infectious Disease: 2 No Data to Display Blood Cultures: 2 No Data to Display Toxicology Panel: 2 No Data to Display Panel: 2 Beta HCG, Quantitative 96 mIU/mL (1-3) H 12/15/23 12:33 Anesthesia Assessment and Plan Anesthesia History Personal History: No History of General Anesthesia Family History: No Family History of Anesthesia Complications Exercise Tolerance Exercise Tolerance: Metabolic Equivalents>4 Pertinent Negatives Pertinent Negatives: No Symptoms of GERD, No Major Cardiovascular Symptoms or Complaints, No Major Pulmonary Symptoms or Complaints and No History of CVA/TIA Cardiac & Pulmonary Exam Cardiac Exam: Normal S1/S2 Heart Sounds Pulmonary Exam: Clear Bilateral Breath Sounds Implantable Cardiac Device Does patient have a Pacemaker or an ICD?: No Airway Exam Known Difficult Airway: No Mallampati Class: 1 Mouth Opening: Normal (> 3cm) Thyromental Distance: Greater than 3 cm Neck Range of Motion: Full ROM Neck Circumference: Normal Teeth Condition: Generalized Poor Dentition (multiple cracked and missing teeth, generalized poor dentition) ASA Classification ASA Score: ASA 2 Emergency Case?: Yes NPO Status NPO Status: Full Stomach Status Status: Other (ectopic ) Anesthesia Plan Resuscitation Status: Full Code Anesthesia Technique: General Anesthesia Airway Planned: Endotracheal Tube (RSI) Monitors Used: Standard Monitors and SedLine
--- NOTE | 2023-12-15 14:30 | FALL_PTH ---
PATIENT: Sherrill Burns LOC: [facility] U#:[id number] AGE/SX: 23/F ROOM: RE12/15/[address]: Ynes Weeks MD : 2000 BED: DIS: 12/15/2023 SPEC #: [id number] RECD: 12/15/23 17:53 STATUS: LOPEZ REOlivier #: [id number] KAEREM: 12/15/23 14:[address]: Ynes Weeks DEPT: Surgical Specimen RECD BY: Shoshana Hill ENTERED: 12/15/23 17:54 SP TYPE: Fall OTHR DR: Ron Lo DNP Tissues: 1 - FALLOPIAN TUBE (ECTOPIC) Procedures: GROSS AND MICRO LEVEL 4 Comments: [id number]
--- NOTE | 2023-12-15 14:55 | ROE_ITS ---
Date of service: 12/15/23 Time of Service: 14:55 Operative Note Operative Note DATE OF PROCEDURE: 12/15/23 PRE-OP DIAGNOSIS: ruptured left ectopic POST-OP DIAGNOSIS: same PROCEDURE: Laparoscopic Left salpingectomy, evacuation of hemoperitoneum SURGEON: Ynes Weeks ASSISTING SURGEON: Carmita De Guzman Refer to Anesthesia Record ESTIMATED BLOOD LOSS: 380 COMPLICATIONS: None Patient was transported to: same day Patient's condition: stable Indications: , hemoperitoneum, suspected left ectopic Findings: Enlarged left fallopian tube with clot extruding from the fimbria, old clot in the left posterior cul-de-sac, hemoperitoneum Procedure Description: After informed consent was signed the patient was taken to the operating room and given general anesthesia.? SCDs were placed on her legs.? She was prepped and draped in the dorsal lithotomy position in the [facility].? A time out was performed. A straight catheter was introduced into her bladder to empty it of urine. A speculum was placed into the vagina to expose the cervix and a hulka manipulator was placed into the cervix. The speculum was removed. Gloves were changed and attention was turned to the abdomen. The infraumbilical fold was grasped and injected with 0.25% marcaine with epin ephrine. A 12mm incision was made in the infraumbilical fold with the scalpel. A hemostat was used to bluntly dissect the subcuticular layers. The fascia was grasped with phoenix clamps and incised. The visiport was then assembled and used to enter the abdomen under direct visualization. Once entrance to the abdominal cavity was confirmed the CO2 was turned on and the abdomen was insufflated. Two lateral 5mm ports were then placed under direct visualization. There was blood noted in the pelvis on entrance. The left tube was identified and was noted to be enlarged with clots coming from the end. There was some old clot in the left posterior cul-de-sac. The ligasure device was assembled and used to clamp, cauterize and cut through the broad ligament along the tube. The proximal end was ligated and cut with good hemostasis along the length. The clots were suctioned and the abdomen was irrigated. Good hemostasis was noted again. The ports were removed. The gas was released from the abdomen. The fascia of the umbilical incision was identified and closed with a [id number] suture of 0 vicryl. The skin incisions were then closed with 4-0 vicryl. Mastisol and steristrips were placed. The manipulator was removed. The patient was placed back into the supine position.? She was moved to the stretcher and taken to the recovery room in stable condition.
--- NOTE | 2023-12-15 15:29 | W.ANESPOSTOP ---
Postoperative Evaluation Date, Time and Location Date Performed: 12/15/23 Time Performed: 15:29 Patient Location: PACU Vital Signs Most Recent Imported Vital Signs: Most Recent Vital Signs Temp Pulse Resp BP Pulse Ox 36.5 C 81 16 104/60 98 12/15/23 15:21 12/15/23 15:17 12/15/23 15:17 12/15/23 15:17 12/15/23 15:17 Pain Score Most Recent Pain Score: Most Recent Pain Score Pain Level 1 12/15/23 15:21 Assessment Mental Status: Awake (Alert & Oriented to Patient Baseline) Airway and Respiratory Function: Patent airway with normal (patient baseline) respiratory exam Cardiovascular Function: Hemodynamically Stable Hydration Status: Adequately Hydrated Nausea & Vomiting: No Nausea or Vomiting Pain: Pt. Denies Any Pain Peripheral Nerve Block: Patient did not receive a nerve block
--- NOTE | 2023-12-15 17:20 | PDOC.DSDIS_ITS ---
Date of service: 12/15/23 Time of Service: 14:00 Discharge Plan Disposition Patient Disposition: Home Condition: Stable Discharge Details Reason For Visit: Stomach Pain Attending Provider: Ynes Weeks Primary Care Provider: Ron Manjarrez Home Meds and New Rx's Prescriptions: No Action vit,[id number] 29-1 mg tablet 1 tab PO DAILY Qty: 90 4RF escitalopram oxalate 20 mg tablet 20 mg PO DAILY Qty: 90 4RF Discharge Instructions Stand Alone Forms: Anesthesia Discharge Inst., DSU Post Char Filter Operator SurgeryW/Incision, Press Ganey (DSU) Activity:: no lifting >20lbs Shower/Bathe:: 24 hours Diet:: As Tolerated Discharge Orders Discharge Orders: Discharge Order (Routine); Ordered 12/15/23 Ordered By: Ynes Weeks Discharge Data Discharge Date/Time-TO BE ENTERED AT DEPARTURE: 12/15/23 16:44 DS: Diagnosis Discharge Diagnosis (1) Ruptured ectopic : Status: Acute
== END 2023-12-15 16:44 | disposition home or self-care (01) ==
LOC: ER 12:55 → SUR 13:31
PROVIDERS: Emergency Provider Emergency Medicine; PCP Nurse Practitioner Family; Visit Provider Obstetrics & Gynecology
PROC: (CPT 49320; principal; 2023-12-15 13:00)
DX: O00.90 Unspecified ectopic pregnancy without intrauterine pregnancy (principal); O00.102 Left tubal pregnancy without intrauterine pregnancy; O08.1 Delayed or excessive hemorrhage following ectopic and molar pregnancy; F41.9 Anxiety disorder, unspecified; E66.9 Obesity, unspecified
CPT/HCPCS: 59151; 80053; 86850; 86900; 86901; 88305; 76801; 81003; 81015; 84702; 85025; 85610; 85730; J1100; J2250; J2405; J2704; J3010